=== PATIENT | male | born 1940 | race African-American/Black ===

== ENCOUNTER → 2018-12-03 10:58 | Outpatient (CLI) | payer OTHER, SELFPAY | PROVIDERS: PCP Internal Medicine; Visit Provider Physician Assistant | DX: R31.9 Hematuria, unspecified (principal) | CPT/HCPCS: 87086 ==

== ENCOUNTER 2018-12-20 09:29 | Day surgery (SDC) | payer OTHER, SELFPAY ==
--- NOTE | 2018-12-20 | PATH_ITS ---
[facility] Accession Number: [id number] . 01 Material submitted: . PART A: CECAL POLYPS PART B: TRANSVERSE COLON POLYPS . 02 Diagnosis: A. 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 No evidence of malignancy or high-grade dysplasia. . B. Transverse Colon, Polyps, Biopsies: Tubular adenomas. MRV/12/21/2018 . 02 Electronically signed: . Munira Arevlao MD, Pathologist NPI- [id number] . 01 Gross description: . Received two formalin-filled containers, both labeled with the patient's name: . A. In a container labeled cecal polyps, the specimen consists of multiple 0.1-0.6 cm portions of tissue, which are filtered, wrapped, and entirely submitted in cassettes A1 and A2. B. In a container labeled transverse colon polyps, the specimen consists of multiple less than 0.1 cm to 0.6 cm portions of tissue, which are filtered, wrapped, and entirely submitted in cassette B. ([id number]) /FRR . 02 Pathologist provided ICD-10: D12.0, D12.3 . 02 CPT . 818358, [id number] Performed at: 01 [facility] [address] [facility], [place], [place] [id number] MD Rafa Treviño MD Phone: [phone] Performed at: 02 [facility] [address] [place], [place] [id number] MD Munira Arevalo MD Phone: [phone]
--- NOTE | 2018-12-20 08:16 | PM.HP.1 ---
History of Present Illness Date Patient Seen: 12/20/18 Chief complaint: [id number] Narrative: Qwoikmr-fkfjl-jefs-old male with a history of changes in bowel habits who was seen in our office on 11/28/2017. He is having a colonoscopy due to a history of colon polyps and a family history colon cancer in his brother Patient History Social History household members: spouse, family and children Meds Home Medications Medication Instructions Recorded Confirmed Type aspirin 81 mg PO QDAY #0 03/08/12 12/03/18 History allopurinol 1 tab PO DAILY 12/20/18 12/20/18 History amlodipine 1 tab PO DAILY 12/20/18 12/20/18 History atorvastatin 1 tab PO DAILY 12/20/18 12/20/18 History cholecalciferol (vitamin D3) 4,000 unit PO DAILY 12/20/18 12/20/18 History [Vitamin D3] metformin 1 tab PO BID 12/20/18 12/20/18 History nmxtngvp-qdp-UD-lycopen-lutein 1 tab PO DAILY 12/20/18 12/20/18 History [Centrum Silver Men] Allergies Allergy/AdvReac Type Severity Reaction Status Date / Time No Known Drug Allergies Allergy Verified 12/20/18 10:10 Exam Narrative Exam Narrative: General: Patient is obese, not in apparent distress Cardiovascular: Regular rate and rhythm, no murmurs, rubs, or gallops; no evidence of edema; no palpable abdominal aortic aneurysm Gastrointestinal: Normoactive bowel sounds, soft, nontender, nondistended, no rebound tenderness, no hepatosplenomegaly, no evidence of hernia
--- NOTE | 2018-12-20 08:19 | P.HP_ITS ---
History of Present Illness Date Patient Seen: 12/20/18 Chief complaint: [id number] Narrative: Frkjnzb-nzvxo-dwcy-old male with a history of changes in bowel habits who was seen in our office on 11/28/2017. He is having a colonoscopy due to a history of colon polyps and a family history colon cancer in his brother Patient History Social History household members: spouse, family and children Meds Home Medications Medication Instructions Recorded Confirmed Type aspirin 81 mg PO QDAY #0 03/08/12 12/03/18 History allopurinol 1 tab PO DAILY 12/20/18 12/20/18 History amlodipine 1 tab PO DAILY 12/20/18 12/20/18 History atorvastatin 1 tab PO DAILY 12/20/18 12/20/18 History cholecalciferol (vitamin D3) 4,000 unit PO DAILY 12/20/18 12/20/18 History [Vitamin D3] metformin 1 tab PO BID 12/20/18 12/20/18 History dnxffbyq-rzn-CI-lycopen-lutein 1 tab PO DAILY 12/20/18 12/20/18 History [Centrum Silver Men] Allergies Allergy/AdvReac Type Severity Reaction Status Date / Time No Known Drug Allergies Allergy Verified 12/20/18 10:10 Exam Narrative Exam Narrative: General: Patient is obese, not in apparent distress Cardiovascular: Regular rate and rhythm, no murmurs, rubs, or gallops; no evidence of edema; no palpable abdominal aortic aneurysm Gastrointestinal: Normoactive bowel sounds, soft, nontender, nondistended, no rebound tenderness, no hepatosplenomegaly, no evidence of hernia
[2018-12-20 09:44] VITALS: BP 161/99; PULSE 64; RESP 16; TEMP 36.5; O2SAT 100; BMI 34.7
[2018-12-20] MEDS: SODIUM CHLORIDE 0.9% 1,000 ML 70 ML IV (10:03)
--- NOTE | 2018-12-20 10:34 | P.OP.ENDO_ITS ---
Operative Date/Time/Diagnoses Date of procedure: 12/20/18 Procedure Notes Procedure in detail: Surgeon: Fredis Andres MD Procedure: Colonoscopy with polypectomy Preoperative diagnosis: Colon polyp surveillance, incidental change in bowel habits Postoperative diagnosis: Colon polyps x6 status post polypectomy, 1 Endoclip placed at polypectomy site in the cecum, grade 2 internal hemorrhoids Medications: Conscious sedation using 2 mg IV of Midazolam and 100 mcg IV of Fentanyl Preanesthesia Assessment An H and P was performed/updated and the Px?s ASA class is 2. The procedure was discussed in detail with the patient. The potential risks and complications including infection, bleeding, missed lesions, perforation, need for surgery in case of perforation, prolonged hospital stay, and were explained. A brief question and answer period was allotted and once all questions were answered, informed consent was obtained. The patient was brought back to the procedure room and placed on standard monitoring. The patient?s vital signs were monitored continuously throughout the entire procedure. Prior to starting, a timeout was performed to confirm the patient?s identity, allergies, medications, and procedure. Procedure in detail The patient was placed in left lateral decubitus position and once adequate sedation was obtained a LUH was performed. The digital rectal examination did not reveal any palpable lesions. The tip of the colonoscope was placed in the an al canal and advanced without difficulty all the way to the cecum which was identified by the appendiceal orifice and the ileocecal valve. Careful examination of all cruz of the colon was performed with irrigation of any residual stool. In the cecum, there was note of a 5 mm sessile polyp which was removed in its entirety by means of cold snare. Resection and retrieval were complete with minimal bleeding In the cecum, there was note of a 15 mm pedunculated polyp which was removed in its entirety by means of a hot snare. Resection retrieval was complete with no bleeding. An Endoclip was placed at the polypectomy site for prophylactic bleed control. Endoclip is MRI conditional In the transverse colon, there was note of a 2 mm sessile polyp which was removed in its entirety by means of a cold Jumbo forceps. Resection and retrieval was complete with minimal bleeding In the transverse colon, there was note of a 10 mm semi pedunculated polyp which was removed in its entirety by means of a hot snare. Resection and retrieval was complete with no bleeding. In the transverse colon, there was note of 2 sessile polyps measuring 5-6 mm which were removed in its entirety by means of a cold snare. Resection and retrieval were complete with no bleeding Retroflexion was performed in the rectum which revealed grade 2 internal hemorrhoids The patient tolerated the procedure well and will be brought back to the recovery area to be discharged once criteria are met. The prep was judged to be good/excellent and adequate to identify polyps less than 5 mm. The withdrawal time was 14 min. The total physician intraservice time was 18 min. Complications There were no complications and estimated blood loss was minimal. Recommendations: Resume previous diet Continue outPx medications Follow up pathology results Repeat colonoscopy in 3 years Endoclip is MRI conditional so prior to any MRI study x-ray should be performed to document endoclip passage Office follow up with Dr. Dolan at next available appointment An emergency contact number was given to the patient for any complications related to the procedure
[2018-12-20 10:55] VITALS: BP 133/85; PULSE 63; RESP 14; TEMP 36.2; O2SAT 100
[2018-12-20 11:00] VITALS: BP 153/90; PULSE 69; RESP 16; O2SAT 100
[2018-12-20 11:04] VITALS: BP 155/84; PULSE 69; RESP 14; TEMP 36.2; O2SAT 100
--- NOTE | 2018-12-20 11:04 | PM.DS.1 ---
History of Present Illness Chief complaint: [id number] Narrative: Tkhnznl-nqtjg-efmn-old male with a history of changes in bowel habits who was seen in our office on 11/28/2017. He is having a colonoscopy due to a history of colon polyps and a family history colon cancer in his brother Discharge Providers Primary care physician: Chemo Garvin MD Discharge provider: Fredis Andres MD Discharge Date: 12/20/18 Exam Vital Signs (past 8 hours): - 12/20/18 09:44 12/20/18 10:55 12/20/18 11:00 Temperature 97.7 F 97.2 F L Pulse Rate 64 63 69 Respiratory Rate 16 14 16 Blood Pressure 161/99 H 133/85 153/90 H Pulse Oximetry 100 100 100 Oxygen Delivery Method Room Air Narrative Exam Narrative: General: Patient is obese, not in apparent distress Cardiovascular: Regular rate and rhythm, no murmurs, rubs, or gallops; no evidence of edema; no palpable abdominal aortic aneurysm Gastrointestinal: Normoactive bowel sounds, soft, nontender, nondistended, no rebound tenderness, no hepatosplenomegaly, no evidence of hernia Discharge Plan Discharge Plan Patient Disposition: Home Discharge comment: x6, grade 2 internal hemorrhoids Discharge Med Rec/Prescriptions Prescriptions: Continued aspirin 81 MG tablet,delayed release (DR/EC) 1 tab PO QDAY Qty: 0 RF: 0 metformin 500 mg tablet 1 tab PO BID RF: 0 atorvastatin 20 mg tablet 1 tab PO DAILY RF: 0 amlodipine 10 mg tablet 1 tab PO DAILY RF: 0 allopurinol 300 mg tablet 1 tab PO DAILY RF: 0 cholecalciferol (vitamin D3) [Vitamin D3] 2,000 unit Capsule 4,000 unit PO DAILY RF: 0 Centrum Silver Men 300-600-300 mcg Tablet 1 tab PO DAILY RF: 0 Follow up/Referrals: Chemo Garvin MD [Primary Care Provider] - Discharge Orders: Discharge (Order); Ordered 12/20/18 Ordered By: Fredis Andres Visit Report/Discharge Packet Stand Alone Forms: Colonoscopy Result: [facility], Surgery Discharge Discharge Data Primary Care Provider: Chemo Garvin V Attending Provider: Fredis Andres
[2018-12-20 11:25] VITALS: BP 162/83; PULSE 61; TEMP 36.1; O2SAT 100
--- NOTE | 2018-12-20 12:30 | SUR.PHASEII ---
IV d/c'd by ESSIE Glass.
== END 2018-12-20 11:32 | disposition home or self-care (01) ==
PROVIDERS: PCP Internal Medicine; Visit Provider Internal Medicine Gastroenterology
PROC: 0DJD8ZZ Inspection of Lower Intestinal Tract, Via Natural or Artificial Opening Endoscopic (ICD-10-PCS; CPT 45378; principal; 2018-12-20 11:00)
DX: Z86.010 Personal history of colon polyps (principal); K64.1 Second degree hemorrhoids; E11.9 Type 2 diabetes mellitus without complications; I10 Essential (primary) hypertension; Z79.84 Long term (current) use of oral hypoglycemic drugs; D12.0 Benign neoplasm of cecum; D12.3 Benign neoplasm of transverse colon
CPT/HCPCS: 45385; 45380

== ENCOUNTER 2019-05-23 09:30 | Emergency (ER) | payer OTHER, SELFPAY ==
[2019-05-23 09:30] VITALS: BP 152/69; PULSE 66; RESP 14; TEMP 36.5; O2SAT 99
--- NOTE | 2019-05-23 09:47 | ED.ABDPAIN ---
HPI - Abdominal Pain General Chief Complaint: Abdominal Pain Stated Complaint: Lower left stomach pain. Time Seen by Provider: 05/23/19 09:37 Source: patient and family () Mode of arrival: ambulatory Limitations: no limitations History of Present Illness HPI narrative: This is a 78-year-old male comes to the emergency department with complaint of abdominal pain. Patient states that it has been going on for about 2 weeks. It has been kind of slowly worsening. He seems to find that it is worse if he sits for long periods of time it gets better if he moves around. It sort of the left lower quadrant of the abdomen but he does feel it up into the flank. He also states that sometimes had a feels like it is in the hip. He also notes if he moves his leg around that can kind of make it worse as well. No fevers or chills that he is aware of. No nausea or vomiting. He was constipated but been using laxatives regularly and now having some soft bowel movements. He states his stools were dark but there was no black or blood noted. He has not appreciated any urinary issues. Patient takes medication for hypertension, dyslipidemia, gout as well as diabetes. He denies any prior surgeries. He denies any allergies to medications. He does not smoke, he used to drink but rarely if never drinks any more. No illicit. He is accompanied by his . He is Dr. Garvin patient. Related Data Home Medications Medication Instructions Recorded Confirmed aspirin 81 mg PO DAILY #0 03/08/12 05/23/19 Centrum Silver Men 1 tab PO DAILY 12/20/18 05/23/19 allopurinol 1 tab PO DAILY 12/20/18 05/23/19 amlodipine 10 mg PO DAILY 12/20/18 05/23/19 atorvastatin 20 mg PO DAILY 12/20/18 05/23/19 cholecalciferol (vitamin D3) 4,000 unit PO DAILY 12/20/18 05/23/19 [Vitamin D3] metformin 1,000 mg PO BID 12/20/18 05/23/19 glimepiride 0.5 mg PO DAILY 05/23/19 05/23/19 Previous Rx's Medication Instructions Recorded prednisone 20 mg PO DAILY #3 tab 05/23/19 Allergies Allergy/AdvReac Type Severity Reaction Status Date / Time No Known Drug Allergies Allergy Verified 07/10/19 09:39 Review of Systems Review of Systems ROS Unobtainable: All systems reviewed & are unremarkable except as noted in HPI and below Constitutional Denies chills, Denies fever(s), Denies lethargy and Denies weakness Gastrointestinal Gastrointestinal: Reports abdominal pain (Left lower quadrant), Denies melena, Denies hematochezia, Reports change in bowel habits, Denies constipation (Was constipated, resolved with laxative), Denies dyspepsia, Denies diarrhea, Denies nausea and Denies vomiting Genitourinary Denies hematuria, Denies dysuria, Reports flank pain (Flank), Denies testicular pain, Denies urinary frequency, Denies urinary incontinence and Denies urinary urgency Musculoskeletal Denies back pain, Reports arthralgias (left hip, slightly), Denies joint swelling, Denies limited range of motion, Denies muscle weakness, Denies numbness and Denies tingling Integumentary/Breasts Denies rash Neurologic Denies numbness, Denies tingling and Denies weakness [facility] Medical History (Updated 05/23/19 @ 12:47 by Luz Maria Hurd DO) Diabetes (Chronic) Dyslipidemia (Chronic) Gout (Chronic) Hypertension (Chronic) Social History household members: spouse, family and children Smoking Status: Never smoker Social History (Updated 05/23/19 @ 09:52 by Luz Maria Hurd DO) marital status: household members: spouse, family and children Smoking Status: Never smoker alcohol intake: former substance use type: does not use Exam Narrative Exam Narrative: GENERAL: Alert and oriented x three, well-nourished, well-appearing male in no acute distress. HEENT: Head normocephalic, atraumatic, EOMI, pupils reactive, face symmetric, moist mucous membranes NECK: Supple, full range of motion CARDIOVASCULAR: Regular rate and rhythm without murmurs, rubs or gallops. RESPIRATORY: Breath sounds equal bilaterally, no wheezes rales or rhonchi. ABDOMEN: Soft, mild left lower quadrant tenderness. Normoactive bowel sounds all 4 quadrants. No guarding or rebound, rigidity, no mass : No CVA tenderness BACK: No cervical, thoracic or lumbar vertebral point tenderness. Patient has normal range of motion. Patient's gait is normal. EXTREMITIES: Patient has mild tenderness in the left hip, negative pelvic rock. Normal range of motion, no clubbing or edema. Neurovascularly intact NEUROLOGICAL: Cranial nerves II through XII grossly intact. Moving all extremities SKIN: Warm, dry, no petechiae, no rashes or lesions. Initial Vital Signs Initial Vital Signs: Vital Signs Temperature 97.7 F 05/23/19 09:30 Pulse Rate 66 05/23/19 09:30 Respiratory Rate 14 05/23/19 09:30 Blood Pressure 152/69 H 05/23/19 09:30 Pulse Oximetry 99 05/23/19 09:30 Course Orders Ordered: ED Orders 05/23/19 09:47 CT abdomen pelvis w con Stat 05/23/19 10:44 Complete Blood Count AUTO DIFF Stat Comprehensive Metabolic Panel Stat Lipase Stat Discontinued Medications Sodium Chloride (Normal Saline 0.9%) 1,000 mls @ 1,000 mls/hr IV BOLUS ONE Stop: 05/23/19 10:46 Last Infusion: 05/23/19 13:13 Dose: 0 mls/hr Admin: 05/23/19 11:25 Dose: 1,000 mls/hr Vital Signs - 8 hr 05/23/19 11:00 05/23/19 12:00 05/23/19 12:30 Pulse Rate 55 L 60 61 Respiratory Rate 12 15 17 Blood Pressure Blood Pressure [Left Arm] 154/76 H 148/77 H 142/86 H Pulse Oximetry 98 100 99 05/23/19 13:13 Pulse Rate 67 Respiratory Rate 14 Blood Pressure 146/80 H Blood Pressure [Left Arm] Pulse Oximetry 99 MDM - Abdominal Pain Lab Data Attestation: I reviewed the patient's lab results. Result diagrams: 05/23/19 10:44 05/23/19 10:44 Lab Results 05/23/19 05/23/19 Range/Units 10:44 10:44 WBC 6.8 (4.5-11.0) X10^3/uL RBC 4.95 (4.5-5.9) X10^6/uL Hgb 15.0 (13.5-17.5) g/dL Hct 45.0 (41-53) % MCV 90.9 (80-100) fL MCH 30.2 (26-34) PG MCHC 33.2 (30-36) % RDW 13.7 (11.6-14.8) % Plt Count 181 (150-400) X10^3/uL Neut % (Auto) 59.8 (50-75) % Lymph % (Auto) 27.0 (25-40) % Stark % (Auto) 8.8 (3-14) % Eos % (Auto) 3.4 (2-4) % Baso % (Auto) 1.0 (0-2) % Neut # (Auto) 4100 (2513-6751) /uL Lymph # (Auto) 1800 (2541-6702) /uL Stark # (Auto) 600 (0-900) /uL Eos # (Auto) 200 (0-450) /uL Baso # (Auto) 100 (0-100) /uL Sodium 141 (137-145) mmol/L Potassium 4.2 (3.4-5.1) mmol/L Chloride 107 (98-107) mmol/L Carbon Dioxide 25 (22-32) mmol/L BUN 16 (9-20) mg/dL Creatinine 1.30 H (0.66-1.25) mg/dL Estimated GFR 53.4 L (>60) mL/min BUN/Creatinine Ratio 12.3 (6-22) Glucose 144 H (80-110) mg/dL Calcium 10.5 H (8.4-10.2) mg/dL Total Bilirubin 1.1 (0.2-1.3) mg/dL AST 52 (17-59) IU/L ALT 53 (21-72) IU/L Alkaline Phosphatase 62 (38-126) U/L Total Protein 7.6 (6.3-8.2) g/dL Albumin 4.4 (3.5-5.0) g/dL Globulin 3.2 (1.7-4.1) g/dL Albumin/Globulin Ratio 1.4 (1.0-2.8) Lipase 127 (23-300) U/L Point of care testing: Urine Dip Bedside Urine Glucose Negative Bedside Urine Bilirubin - Negative Bedside Urine Ketone - Negative Urine Specific [place] 1.015 Bedside Urine Occult Blood - Negative Bedside Urine pH 7.0 Bedside Urine Protein - Negative Bedside Urine Urobilinogen - Negative Bedside Urine Nitrite - Negative Bedside Urine Leukocytes - Negative Esterase Imaging Data CT scan - abdomen: Radiologist's impression: Hermila Rahmanvin 78 M [address] [address] [address] Scan Report Signed Patient: Karan Rahman#: [id number] : 1940Acct:[id number] Age/Sex: 78 / MDate of Service: 05/23/19 Loc: ED Accession Number: [id number] Procedure: CT abdomen pelvis w con Ordering Provider: Luz Maria Hurd D.O. PROCEDURE: CT ABDOMEN PELVIS W CON INDICATIONS: LLQ pain x 2 weeks, slowly worsening, L flank and hip too TECHNIQUE: After the administration of oral and intravenous contrast, 5 mm thick sections acquired from the diaphragms to the symphysis. 5 mm thick coronal and sagittal reformats were performed. For radiation dose reduction, the following was used: automated exposure control, adjustment of mA and/or kV according to patient size. COMPARISON: [facility], , L-SPINE WITHOUT CONTRAST, 11/13/2012, 11:04. [facility], US, RENAL COMPLETE, 07/31/2007, 11:17. FINDINGS: Image quality: Excellent. ABDOMEN: Lung bases: Lung bases are clear. Heart size is normal. Solid organs: Liver is normal in size and enhancement. Gallbladder is within normal limits. Biliary system is non-dilated. Pancreas enhances normally. Spleen is normal in size and enhancement. No adrenal nodules. There is a partially exophytic high density focus protruding anteriorly from the right inferior pole kidney, measuring 40 mm. Partially exophyticleft interpolar renal cyst measuring 20 mm is present. Kidneys are otherwise normal in size and enhancement, without hydronephrosis. Peritoneum and bowel: Stomach, small bowel, and colon loops are normal in caliber and wall thickness. No free fluid or air. Normal appendix. Moderate diffuse colonic stool. Nodes and vessels: No retroperitoneal or mesenteric adenopathy. Multiple mildly prominent mesenteric lymph nodes are present measuring less than 10 mm short axis. Aorta and inferior vena cava are normal in caliber. Moderate atherosclerotic plaque involving the abdominal aorta. Miscellaneous: No ventral hernias. PELVIS: Genitourinary: Bladder wall thickness is normal. Miscellaneous: No inguinal hernias or adenopathy. There is a right psoas sheath lipoma measuring 50 mm transverse. Small amount of left iliopsoas bursal fluid. Bones: No suspicious bony lesions. No vertebral body compression fractures. IMPRESSION: 1. Mildly prominent mesenteric lymph nodes, suggestive of mesenteric adenitis. 2. Mild left iliopsoas bursitis. 3. Normal appendix. 4. Indeterminant hypodensity focus involving the right kidney which was not seen on the 07.31.07 ultrasound examination. Repeat renal ultrasound is recommended to assess for a mass versus hyperdense cyst in this location. Dictated by: Jason Luong M.D. on 05/23/2019 at 11:46 Approved by: Jason Luong M.D. on 05/23/2019 at 11:53 [facility] Narrative Medical decision making narrative: Patient comes in with complaint of vague lower abdominal pain that has not been resolving. He complains mostly of left lower quadrant he does have some tenderness. He also complains of a little bit of hip discomfort. Patient has not had any falls, he has not had any traumas. He is only very mildly tender with palpation. Discussed with patient my suspicion for fracture is blow so deferred imaging of the hip. He states he has been ambulating without issue. We discussed the possibility multiple causes of his abdominal discomfort but plan to do CT of abdomen pelvis after lab work to evaluate for diverticulitis versus kidney stones versus other potential causes. Although we discussed it could be musculoskeletal in nature. Shingles less likely as there is no rash. CT shows possible mesenteric adenitis, mild left iliopsoas bursitis which could possibly be the cause of his pain. Normal appendix. Indeterminate focus involving the right kidney not seen on 2007 ultrasound examination and recommend repeat ultrasound for evaluation. Patient's lab work does not show any acute changes, creatinine is 1.3 which appears baseline compared to his most recent labs. Patient's urine is negative for any changes. Discharge Plan Departure Patient Disposition: Home Clinical Impression: Abdominal pain, Iliopsoas bursitis of left hip Discharge Date/Time: 05/23/19 13:14 Interventions: ED Discharge Assessment Last Done: 05/23/19 13:13 Instructions: DI for Abdominal Pain-Adult Activity Restrictions/Additional Instructions: Follow-up with your primary care physician next 2-3 days for recheck. Call for an appointment. Your CT today shows some prominent lymph nodes which could be a mesenteric adenitis, this is a self-resolving type diagnosis. There is also some mild bursitis of the iliopsoas which is likely the cause of the pain. Here CT also shows change of the right kidney which was not seen on ultrasound from 2007, repeat renal ultrasound is recommended. Talk with your physician about getting this repeated in the next several weeks. Continue home medications as prescribed. You may take Tylenol up to a 1000 mg every 8 hours as needed for pain if tolerated. Take steroids once daily until gone. Prescription was sent to [facility] in [place]. Return to the emergency department for fevers greater than 100.4 F, rapidly worsening pain, persistent vomiting, black or bloody stools, lightheadedness, passing out, new chest pain or shortness of breath. Prescriptions: New prednisone 20 mg tablet 20 mg PO DAILY Qty: 3 RF: 0 No Action aspirin 81 MG tablet,delayed release (DR/EC) 81 mg PO DAILY Qty: 0 RF: 0 metformin 500 mg tablet 1,000 mg PO BID RF: 0 atorvastatin 20 mg tablet 20 mg PO DAILY RF: 0 amlodipine 10 mg tablet 10 mg PO DAILY RF: 0 allopurinol 300 mg tablet 1 tab PO DAILY RF: 0 cholecalciferol (vitamin D3) [Vitamin D3] 2,000 unit Capsule 4,000 unit PO DAILY RF: 0 Centrum Silver Men 300-600-300 mcg Tablet 1 tab PO DAILY RF: 0 glimepiride 1 mg tablet 0.5 mg PO DAILY RF: 0 Referrals: Chemo Garvin MD [Primary Care Provider] -
--- NOTE | 2019-05-23 09:54 | ED_ITS ---
HPI - Abdominal Pain General Chief Complaint: Abdominal Pain Stated Complaint: Lower left stomach pain. Time Seen by Provider: 05/23/19 09:37 Source: patient and family () Mode of arrival: ambulatory Limitations: no limitations History of Present Illness HPI narrative: This is a 78-year-old male comes to the emergency department with complaint of abdominal pain. Patient states that it has been going on for about 2 weeks. It has been kind of slowly worsening. He seems to find that it is worse if he sits for long periods of time it gets better if he moves around. It sort of the left lower quadrant of the abdomen but he does feel it up into the flank. He also states that sometimes had a feels like it is in the hip. He also notes if he moves his leg around that can kind of make it worse as well. No fevers or chills that he is aware of. No nausea or vomiting. He was constipated but been using laxatives regularly and now having some soft bowel movements. He states his stools were dark but there was no black or blood noted. He has not appreciated any urinary issues. Patient takes medication for hypertension, dyslipidemia, gout as well as diabetes. He denies any prior surgeries. He denies any allergies to medications. He does not smoke, he used to drink but rarely if never drinks any more. No illicit. He is accompanied by his . He is Dr. Garvin patient. Related Data Home Medications Medication Instructions Recorded Confirmed aspirin 81 mg PO DAILY #0 03/08/12 05/23/19 Centrum Silver Men 1 tab PO DAILY 12/20/18 05/23/19 allopurinol 1 tab PO DAILY 12/20/18 05/23/19 amlodipine 10 mg PO DAILY 12/20/18 05/23/19 atorvastatin 20 mg PO DAILY 12/20/18 05/23/19 cholecalciferol (vitamin D3) 4,000 unit PO DAILY 12/20/18 05/23/19 [Vitamin D3] metformin 1,000 mg PO BID 12/20/18 05/23/19 glimepiride 0.5 mg PO DAILY 05/23/19 05/23/19 Previous Rx's Medication Instructions Recorded prednisone 20 mg PO DAILY #3 tab 05/23/19 Allergies Allergy/AdvReac Type Severity Reaction Status Date / Time No Known Drug Allergies Allergy Verified 07/10/19 09:39 Review of Systems Review of Systems ROS Unobtainable: All systems reviewed & are unremarkable except as noted in HPI and below Constitutional Denies chills, Denies fever(s), Denies lethargy and Denies weakness Gastrointestinal Gastrointestinal: Reports abdominal pain (Left lower quadrant), Denies melena, Denies hematochezia, Reports change in bowel habits, Denies constipation (Was constipated, resolved with laxative), Denies dyspepsia, Denies diarrhea, Denies nausea and Denies vomiting Genitourinary Denies hematuria, Denies dysuria, Reports flank pain (Flank), Denies testicular pain, Denies urinary frequency, Denies urinary incontinence and Denies urinary urgency Musculoskeletal Denies back pain, Reports arthralgias (left hip, slightly), Denies joint swelling, Denies limited range of motion, Denies muscle weakness, Denies numbness and Denies tingling Integumentary/Breasts Denies rash Neurologic Denies numbness, Denies tingling and Denies weakness [facility] Medical History (Updated 05/23/19 @ 12:47 by Luz Maria Hurd DO) Diabetes (Chronic) Dyslipidemia (Chronic) Gout (Chronic) Hypertension (Chronic) Social History household members: spouse, family and children Smoking Status: Never smoker Social History (Updated 05/23/19 @ 09:52 by Luz Maria Hurd DO) marital status: household members: spouse, family and children Smoking Status: Never smoker alcohol intake: former substance use type: does not use Exam Narrative Exam Narrative: GENERAL: Alert and oriented x three, well-nourished, well- appearing male in no acute distress. HEENT: Head normocephalic, atraumatic, EOMI, pupils reactive, face symmetric, moist mucous membranes NECK: Supple, full range of motion CARDIOVASCULAR: Regular rate and rhythm without murmurs, rubs or gallops. RESPIRATORY: Breath sounds equal bilaterally, no wheezes rales or rhonchi. ABDOMEN: Soft, mild left lower quadrant tenderness. Normoactive bowel sounds all 4 quadrants. No guarding or rebound, rigidity, no mass : No CVA tenderness BACK: No cervical, thoracic or lumbar vertebral point tenderness. Patient has normal range of motion. Patient's gait is normal. EXTREMITIES: Patient has mild tenderness in the left hip, negative pelvic rock. Normal range of motion, no clubbing or edema. Neurovascularly intact NEUROLOGICAL: Cranial nerves II through XII grossly intact. Moving all extremities SKIN: Warm, dry, no petechiae, no rashes or lesions. Initial Vital Signs Initial Vital Signs: Vital Signs Temperature 97.7 F 05/23/19 09:30 Pulse Rate 66 05/23/19 09:30 Respiratory Rate 14 05/23/19 09:30 Blood Pressure 152/69 H 05/23/19 09:30 Pulse Oximetry 99 05/23/19 09:30 Course Orders Ordered: ED Orders 05/23/19 09:47 CT abdomen pelvis w con Stat 05/23/19 10:44 Complete Blood Count AUTO DIFF Stat Comprehensive Metabolic Panel Stat Lipase Stat Discontinued Medications Sodium Chloride (Normal Saline 0.9%) 1,000 mls @ 1,000 mls/hr IV BOLUS ONE Stop: 05/23/19 10:46 Last Infusion: 05/23/19 13:13 Dose: 0 mls/hr Admin: 05/23/19 11:25 Dose: 1,000 mls/hr Vital Signs - 8 hr 05/23/19 11:00 05/23/19 12:00 05/23/19 12:30 Pulse Rate 55 L 60 61 Respiratory Rate 12 15 17 Blood Pressure Blood Pressure [Left Arm] 154/76 H 148/77 H 142/86 H Pulse Oximetry 98 100 99 05/23/19 13:13 Pulse Rate 67 Respiratory Rate 14 Blood Pressure 146/80 H Blood Pressure [Left Arm] Pulse Oximetry 99 MDM - Abdominal Pain Lab Data Attestation: I reviewed the patient's lab results. Result diagrams: 05/23/19 10:44 05/23/19 10:44 Lab Results 05/23/19 05/23/19 Range/Units 10:44 10:44 WBC 6.8 (4.5-11.0) X10^3/uL RBC 4.95 (4.5-5.9) X10^6/uL Hgb 15.0 (13.5-17.5) g/dL Hct 45.0 (41-53) % MCV 90.9 (80-100) fL MCH 30.2 (26-34) PG MCHC 33.2 (30-36) % RDW 13.7 (11.6-14.8) % Plt Count 181 (150-400) X10^3/uL Neut % (Auto) 59.8 (50-75) % Lymph % (Auto) 27.0 (25-40) % Dougherty % (Auto) 8.8 (3-14) % Eos % (Auto) 3.4 (2-4) % Baso % (Auto) 1.0 (0-2) % Neut # (Auto) 4100 (7721-0134) /uL Lymph # (Auto) 1800 (6699-6940) /uL Dougherty # (Auto) 600 (0-900) /uL Eos # (Auto) 200 (0-450) /uL Baso # (Auto) 100 (0-100) /uL Sodium 141 (137-145) mmol/L Potassium 4.2 (3.4-5.1) mmol/L Chloride 107 (98-107) mmol/L Carbon Dioxide 25 (22-32) mmol/L BUN 16 (9-20) mg/dL Creatinine 1.30 H (0.66-1.25) mg/dL Estimated GFR 53.4 L (>60) mL/min BUN/Creatinine Ratio 12.3 (6-22) Glucose 144 H (80-110) mg/dL Calcium 10.5 H (8.4-10.2) mg/dL Total Bilirubin 1.1 (0.2-1.3) mg/dL AST 52 (17-59) IU/L ALT 53 (21-72) IU/L Alkaline Phosphatase 62 (38-126) U/L Total Protein 7.6 (6.3-8.2) g/dL Albumin 4.4 (3.5-5.0) g/dL Globulin 3.2 (1.7-4.1) g/dL Albumin/Globulin Ratio 1.4 (1.0-2.8) Lipase 127 (23-300) U/L Point of care testing: Urine Dip Bedside Urine Glucose Negative Bedside Urine Bilirubin - Negative Bedside Urine Ketone - Negative Urine Specific Angelica 1.015 Bedside Urine Occult Blood - Negative Bedside Urine pH 7.0 Bedside Urine Protein - Negative Bedside Urine Urobilinogen - Negative Bedside Urine Nitrite - Negative Bedside Urine Leukocytes - Negative Esterase Imaging Data CT scan - abdomen: Radiologist's impression: Hermila Rahmanvin 78 M [address] [address] [address] Scan Report Signed Patient: Karan Rahman#: [id number] : 1940Acct:[id number] Age/Sex: 78 / MDate of Service: 05/23/19 Loc: ED Accession Number: [id number] Procedure: CT abdomen pelvis w con Ordering Provider: Luz Maria Hurd D.O. PROCEDURE: CT ABDOMEN PELVIS W CON INDICATIONS: LLQ pain x 2 weeks, slowly worsening, L flank and hip too TECHNIQUE: After the administration of oral and intravenous contrast, 5 mm thick sections acquired from the diaphragms to the symphysis. 5 mm thick coronal and sagittal reformats were performed. For radiation dose reduction, the following was used: automated exposure control, adjustment of mA and/or kV according to patient size. COMPARISON: [facility], , L-SPINE WITHOUT CONTRAST, 11/13/2012, 11:04. [facility], US, RENAL COMPLETE, 07/31/2007, 11:17. FINDINGS: Image quality: Excellent. ABDOMEN: Lung bases: Lung bases are clear. Heart size is normal. Solid organs: Liver is normal in size and enhancement. Gallbladder is within normal limits. Biliary system is non-dilated. Pancreas enhances normally. Spleen is normal in size and enhancement. No adrenal nodules. There is a partially exophytic high density focus protruding anteriorly from the right inferior pole kidney, measuring 40 mm. Partially exophyticleft interpolar renal cyst measuring 20 mm is present. Kidneys are otherwise normal in size and enhancement, without hydronephrosis. Peritoneum and bowel: Stomach, small bowel, and colon loops are normal in caliber and wall thickness. No free fluid or air. Normal appendix. Moderate diffuse colonic stool. Nodes and vessels: No retroperitoneal or mesenteric adenopathy. Multiple mildly prominent mesenteric lymph nodes are present measuring less than 10 mm short axis. Aorta and inferior vena cava are normal in caliber. Moderate atherosclerotic plaque involving the abdominal aorta. Miscellaneous: No ventral hernias. PELVIS: Genitourinary: Bladder wall thickness is normal. Miscellaneous: No inguinal hernias or adenopathy. There is a right psoas sheath lipoma measuring 50 mm transverse. Small amount of left iliopsoas bursal fluid. Bones: No suspicious bony lesions. No vertebral body compression fractures. IMPRESSION: 1. Mildly prominent mesenteric lymph nodes, suggestive of mesenteric adenitis. 2. Mild left iliopsoas bursitis. 3. Normal appendix. 4. Indeterminant hypodensity focus involving the right kidney which was not seen on the 07.31.07 ultrasound examination. Repeat renal ultrasound is recommended to assess for a mass versus hyperdense cyst in this location. Dictated by: Jason Luong M.D. on 05/23/2019 at 11:46 Approved by: Jason Luong M.D. on 05/23/2019 at 11:[address] [facility] Narrative Medical decision making narrative: Patient comes in with complaint of vague lower abdominal pain that has not been resolving. He complains mostly of left lower quadrant he does have some tenderness. He also complains of a little bit of hip discomfort. Patient has not had any falls, he has not had any traumas. He is only very mildly tender with palpation. Discussed with patient my suspicion for fracture is blow so deferred imaging of the hip. He states he has been ambulating without issue. We discussed the possibility multiple causes of his abdominal discomfort but plan to do CT of abdomen pelvis after lab work to evaluate for diverticulitis versus kidney stones versus other potential causes. Although we discussed it could be musculoskeletal in nature. Shingles less likely as there is no rash. CT shows possible mesenteric adenitis, mild left iliopsoas bursitis which could possibly be the cause of his pain. Normal appendix. Indeterminate focus involving the right kidney not seen on 2007 ultrasound examination and recommend repeat ultrasound for evaluation. Patient's lab work does not show any acute changes, creatinine is 1.3 which appears baseline compared to his most recent labs. Patient's urine is negative for any changes. Discharge Plan Departure Patient Disposition: Home Clinical Impression: Abdominal pain, Iliopsoas bursitis of left hip Discharge Date/Time: 05/23/19 13:14 Interventions: ED Discharge Assessment Last Done: 05/23/19 13:13 Instructions: DI for Abdominal Pain-Adult Activity Restrictions/Additional Instructions: Follow-up with your primary care physician next 2-3 days for recheck. Call for an appointment. Your CT today shows some prominent lymph nodes which could be a mesenteric adenitis, this is a self-resolving type diagnosis. There is also some mild bursitis of the iliopsoas which is likely the cause of the pain. Here CT also shows change of the right kidney which was not seen on ultrasound from 2007, repeat renal ultrasound is recommended. Talk with your physician about getting this repeated in the next several weeks. Continue home medications as prescribed. You may take Tylenol up to a 1000 mg every 8 hours as needed for pain if tolerated. Take steroids once daily until gone. Prescription was sent to [facility] in [place]. Return to the emergency department for fevers greater than 100.4 F, rapidly worsening pain, persistent vomiting, black or bloody stools, lightheadedness, passing out, new chest pain or shortness of breath. Prescriptions: New prednisone 20 mg tablet 20 mg PO DAILY Qty: 3 RF: 0 No Action aspirin 81 MG tablet,delayed release (DR/EC) 81 mg PO DAILY Qty: 0 RF: 0 metformin 500 mg tablet 1,000 mg PO BID RF: 0 atorvastatin 20 mg tablet 20 mg PO DAILY RF: 0 amlodipine 10 mg tablet 10 mg PO DAILY RF: 0 allopurinol 300 mg tablet 1 tab PO DAILY RF: 0 cholecalciferol (vitamin D3) [Vitamin D3] 2,000 unit Capsule 4,000 unit PO DAILY RF: 0 Centrum Silver Men 300-600-300 mcg Tablet 1 tab PO DAILY RF: 0 glimepiride 1 mg tablet 0.5 mg PO DAILY RF: 0 Referrals: Chemo Garvin MD [Primary Care Provider] -
[2019-05-23 10:00] VITALS: BP 144/72; PULSE 64; RESP 19; O2SAT 98
[2019-05-23 10:53] LABS: Add Manual Diff / Slide Review NO; Basophils Absolute Auto 100 /uL (0-100); Eosinophils Absolute Auto 200 /uL (0-450); Eosinophils Percent Auto 3.4 % (2-4); Lymphocytes Absolute Auto 1800 /uL (1100-4500); Mean Corpuscular HGB Conc 33.2 % (30-36); Mean Corpuscular Hemoglobin 30.2 PG (26-34); Mean Corpuscular Volume 90.9 fL (80-100); Monocytes Absolute Auto 600 /uL (0-900); Monocytes Percent Auto 8.8 % (3-14); Neutrophils Absolute Auto 4100 /uL (1500-7000); Neutrophils Percent Auto 59.8 % (50-75); Platelet Count 181 X10^3/uL (150-400); Red Blood Cell Count 4.95 X10^6/uL (4.5-5.9); Red Cell Distribution Width 13.7 % (11.6-14.8); White Blood Cell Count 6.8 X10^3/uL (4.5-11.0)
[2019-05-23 11:00] VITALS: BP 154/76; PULSE 55; RESP 12; O2SAT 98
[2019-05-23 11:15] LABS: Alanine Aminotransferase 53 IU/L (21-72); Albumin 4.4 g/dL (3.5-5.0); Albumin Globulin Ratio 1.4 (1.0-2.8); Alkaline Phosphatase 62 U/L (38-126); Aspartate Aminotransferase 52 IU/L (17-59); BUN Creatinine Ratio 12.3 (6-22); Bilirubin Total 1.1 mg/dL (0.2-1.3); Blood Urea Nitrogen 16 mg/dL (9-20); Calcium 10.5 mg/dL (8.4-10.2); Carbon Dioxide 25 mmol/L (22-32); Chloride 107 mmol/L (98-107); Estimated Glomerular Filt Rate 53.4 mL/min (>60); Globulin 3.2 g/dL (1.7-4.1); Glucose 144 mg/dL (80-110); HEMOLYSIS 36 (0-50); Lipase 127 U/L (23-300); Potassium 4.2 mmol/L (3.4-5.1); Sodium 141 mmol/L (137-145); Total Protein 7.6 g/dL (6.3-8.2)
[2019-05-23] MEDS: SODIUM CHLORIDE 0.9% 1,000 ML 1000 ML IV (11:25)
[2019-05-23 12:00] VITALS: BP 148/77; PULSE 60; RESP 15; O2SAT 100
[2019-05-23 12:30] VITALS: BP 142/86; PULSE 61; RESP 17; O2SAT 99
[2019-05-23 13:13] VITALS: BP 146/80; PULSE 67; RESP 14; O2SAT 99
== END 2019-05-23 13:14 | disposition home or self-care (01) ==
PROVIDERS: Emergency Provider Emergency Medicine; PCP Internal Medicine
DX: R10.9 Unspecified abdominal pain (principal); M70.72 Other bursitis of hip, left hip
CPT/HCPCS: 36591; 74177; 80053; 81003; 83690; 85025; 96360; 96361; 99283; 99284; Q9967

== ENCOUNTER → 2019-06-01 12:14 | Outpatient (CLI) | payer OTHER, SELFPAY ==
--- NOTE | 2019-06-01 | DI.US.S_ITS ---
PROCEDURE: US RENAL COMPLETE INDICATIONS: MASS ON CT TECHNIQUE: Real-time scanning was performed of the kidneys and bladder, with image documentation. COMPARISON: [facility], US, RENAL COMPLETE, 07/31/2007, 11:17. [facility], CT, CT ABDOMEN PELVIS W CON, 05/23/2019, 11:29. FINDINGS: Kidneys: Kidneys are normal in size. Right kidney measures 11.7 cm long; left kidney measures 10.5 cm long. Right renal cortical thickness is 2.2 cm; left renal cortical thickness is 1.8 cm. Renal cortical echotexture is normal. No hydronephrosis or nephrolithiasis. There are bilateral renal cysts. A 3.3 x 2.1 x 2.4 cm simple cyst is seen in the inferior right kidney. A 1.7 x 1.7 x 1.7 cm simple there cyst is noted in the superior pole of the left kidney. There is a 2.8 cm slightly complex cyst in the inferior pole of the left kidney. No suspicious solid mass lesions. Bladder: Pre-void bladder volume is 641 mL. Post-void residual is 164 mL. Pre-void images demonstrate no intraluminal masses or stones. On pre-void images, either ureteral jets are noted with color Doppler interrogation. (Of note, ureteral jets may not be detectable in up to 25% of cases due to insufficient differences in specific gravity between ureteral and bladder urine). Miscellaneous: No free pelvic fluid. Note is made of severe hepatic fatty infiltration. IMPRESSION: 1. The hypodense mass in the inferior pole the right kidney seen on the comparison CT correlates with a simple cyst seen on ultrasound. 2. There are 2 cysts in left kidney. A smaller 8 mm cyst is slightly complex. A larger 1.7 cm cystic appears simple. 3. 164 mL post void residual in the urinary bladder. 4. Hepatic steatosis. Dictated by: Aiden Moreira M.D. on 06/01/2019 at 17:22 Approved by: Aiden Moreira M.D. on 06/01/2019 at 17:29
== END ==
PROVIDERS: PCP Internal Medicine; Visit Provider Internal Medicine
DX: R93.421 Abnormal radiologic findings on diagnostic imaging of right kidney (principal); N28.89 Other specified disorders of kidney and ureter; R33.9 Retention of urine, unspecified
CPT/HCPCS: 76770

== ENCOUNTER → 2019-10-10 15:55 | Outpatient (ROUT) | payer OTHER, SELFPAY ==
[2019-10-10 16:32] LABS: Aspartate Aminotransferase 47 IU/L (17-59); BUN Creatinine Ratio 10.8 (6-22); Blood Urea Nitrogen 14 mg/dL (9-20); Calcium 11.1 mg/dL (8.4-10.2); Carbon Dioxide 27 mmol/L (22-32); Chloride 106 mmol/L (98-107); Cholesterol 150 mg/dL (140-199); Estimated Glomerular Filt Rate 53.4 mL/min (>60); Glucose 165 mg/dL (80-110); HDL Cholesterol 44 mg/dL (40-60); HEMOLYSIS < 15 (0-50); LDL Cholesterol Calculated 87 mg/dL (<100); Potassium 4.1 mmol/L (3.4-5.1); Sodium 142 mmol/L (137-145); Triglycerides 95 mg/dL (35-150)
== END ==
PROVIDERS: PCP Internal Medicine; Visit Provider Internal Medicine
DX: I10 Essential (primary) hypertension (principal); E78.2 Mixed hyperlipidemia
CPT/HCPCS: 80048; 80061; 84450

== ENCOUNTER 2020-01-24 14:35 | Emergency (ER) | payer OTHER, SELFPAY ==
[2020-01-24 14:40] VITALS: BP 193/86; PULSE 72; RESP 13; TEMP 36.9; O2SAT 99; BMI 32.5
--- NOTE | 2020-01-24 14:45 | DI.RAD.S_ITS ---
PROCEDURE: XR CHEST 1V INDICATIONS: chest pain TECHNIQUE: One view of the chest was acquired. COMPARISON: None. FINDINGS: Surgical changes and devices: None. Lungs and pleura: Lungs are clear. No pleural effusions or pneumothorax. Mediastinum: Mediastinal contours appear normal. Heart size is normal. Bones and chest wall: No suspicious bony lesions. Overlying soft tissues appear unremarkable. IMPRESSION: No acute cardiopulmonary pathology. Dictated by: Mono Nelson M.D. on 01/24/2020 at 15:38 Approved by: Mono Nelson M.D. on 01/24/2020 at 15:43
--- NOTE | 2020-01-24 14:53 | PC.NURSE ---
pt c/o chest pain started today while sitting in his chair. pt also c/o tenderness to his xyphoid process.
[2020-01-24 14:59] LABS: Add Manual Diff / Slide Review NO; Basophils Absolute Auto 100 /uL (0-100); Basophils Percent Auto 1.6 % (0-2); Eosinophils Absolute Auto 200 /uL (0-450); Eosinophils Percent Auto 2.8 % (2-4); Hematocrit 43.4 % (41-53); Hemoglobin 14.8 g/dL (13.5-17.5); Lymphocytes Absolute Auto 2100 /uL (1100-4500); Lymphocytes Percent Auto 26.9 % (25-40); Mean Corpuscular HGB Conc 34.2 % (30-36); Mean Corpuscular Volume 90.6 fL (80-100); Monocytes Absolute Auto 600 /uL (0-900); Monocytes Percent Auto 7.4 % (3-14); Neutrophils Absolute Auto 4800 /uL (1500-7000); Neutrophils Percent Auto 61.3 % (50-75); Platelet Count 195 X10^3/uL (150-400); Red Cell Distribution Width 13.7 % (11.6-14.8); White Blood Cell Count 7.8 X10^3/uL (4.5-11.0)
[2020-01-24 15:00] VITALS: BP 169/75; PULSE 67; RESP 12
[2020-01-24 15:00] LABS: INR 1.1 (0.9-1.3); Prothrombin Time 12.5 SECONDS (10.1-12.7)
--- NOTE | 2020-01-24 15:00 | ED_ITS ---
HPI - Chest Pain General Chief Complaint: Chest Pain Stated Complaint: chest pain Time Seen by Provider: 01/24/20 14:49 Source: patient Mode of arrival: Ambulatory Limitations: no limitations History of Present Illness HPI narrative: CC: Lower sternal epigastric pressure HPI: The patient is a 79 year old male who presents to the emergency department with the development of epigastric and lower chest pressure after he ate breakfast. He has had this discomfort since breakfast. He describes it as a pressure. He had cream of wheat and eggs for breakfast. His of 54 year states that he has complained of this discomfort in the past. He denies that it radiates to his back or into the shoulders neck jaw or arm. He denies any radiation to his back. He has not had his gallbladder removed nor history of pancreatitis. He has no history of cirrhosis of the liver or alcoholism. He is a diabetic with hypertension but denies a history of congestive heart failure myocardial infarction COPD. He does not smoke cigarettes drink alcohol use any drugs. He states that his discomfort is 3 to 4/10 in intensity. It is intermittent. He has had some indigestion and heartburn but none today. He denies any fever chills sweats headache nasal drainage sinus congestion sore throat shortness of breath. He states that he has a low-grade chronic cough. He has had no palpitations or dizziness. He denies any backache no no nausea or vomiting diarrhea. He did state that his stool sometimes are dark and almost look bloody in nature he stated he denies any urinary symptoms. Related Data Home Medications Medication Instructions Recorded Confirmed aspirin 81 mg PO QPM #0 03/08/12 01/24/20 Centrum Silver Men 1 tab PO DAILY 12/20/18 01/24/20 allopurinol 300 mg PO QPM 12/20/18 01/24/20 amlodipine 10 mg PO DAILY 12/20/18 01/24/20 atorvastatin 20 mg PO DAILY 12/20/18 01/24/20 cholecalciferol (vitamin D3) 4,000 unit PO DAILY 12/20/18 01/24/20 [Vitamin D3] metformin 1,000 mg PO BID 12/20/18 01/24/20 glimepiride 0.5 mg PO DAILY 05/23/19 01/24/20 donepezil 5 mg PO DAILY 01/24/20 01/24/20 mupirocin 1 applic TOPICAL DIRECTED 01/24/20 01/24/20 Previous Rx's Medication Instructions Recorded naproxen [Naprosyn] 500 mg PO BID PRN #20 tab 01/24/20 pantoprazole [Protonix] 40 mg PO DAILY #10 tab 01/24/20 Allergies Allergy/AdvReac Type Severity Reaction Status Date / Time No Known Drug Allergies Allergy Verified 01/24/20 14:46 Review of Systems Review of Systems Narrative: All review of systems were negative except for those mentioned in the history of present illness. Patient History Medical History Diabetes (Chronic) Dyslipidemia (Chronic) Gout (Chronic) Hypertension (Chronic) Social History marital status: household members: spouse, family and children Smoking Status: Never smoker alcohol intake: former substance use type: does not use Smoking Status: Never smoker alcohol intake frequency: 0-2 drinks per day Substance Use Type: does not use Exam Narrative Exam Narrative: PHYSICAL EXAM: CONSTITUTIONAL: Awake, Alert, Oriented, Coherent, Cooperative in NAD. Does not appear toxic or ill. He did appear pale. HEAD: AT/NC EENT: PERRL, FROM of eyes, no discharge, . No epistaxis or nasal drainage Oral mucosa is moist and pink, posterior pharynx is without erythema or exudate. NECK: Supple, no obvious JVD, Trachea is midline without stridor, no palpable LN .. SPINE: No gross deformity, no palpable tenderness of the cervical, thoracic, lumbar or sacral spine. No CVA tenderness. THORAX: No deformity, retractions, . The patient's is a few sternum is tender to palpation. There is no other chest wall deformity. There is no chest wall tenderness otherwise. LUNGS: Clear with symmetrical breath sounds without respiratory distress HEART: Normal heart tones, regular rhythm and rate without murmur. ABDOMEN: Soft, tender in the epigastrium with mild guarding no rebound no rigi dity no palpable organomegaly. EXTREMITIES: No edema, cyanosis, deformity or tenderness. SKIN: No rash, bruising, petechiae or purpura. NEURO: Awake, alert, oriented, conversive, cranial nerves II-XII are symmetrical and normal, moves all 4 extremities and is ambulatory Initial Vital Signs Initial Vital Signs: Vital Signs Temperature 98.4 F 01/24/20 14:40 Pulse Rate 72 01/24/20 14:40 Respiratory Rate 13 01/24/20 14:40 Blood Pressure 193/86 H 01/24/20 14:40 Pulse Oximetry 99 01/24/20 14:40 Course Course Course Narrative: 1658 the patient's rectal exam revealed no active bleeding no skin tags or hemorrhoids. The patient has fair to good sphincter tone with brown stool that tested negative for occult blood. The patient's ultrasound of the gallbladder is negative for any gallstones. The patient's chest x-ray is negative for any acute cardiopulmonary pathology. The patient's troponin is normal. The patient's history did not sound as though it is cardiac in nature. The patient will be referred to his primary care physician. He will be discharged home and placed on pantoprazole 40 mg per day for the next 10 days and antacids. Orders Ordered: Discontinued Medications Al Hydrox/Mg Hydrox/Simethicone 30 ml/ Lidocaine HCl 15 ml 0 ml PO NOW ONE Stop: 01/24/20 15:14 Last Admin: 01/24/20 15:44 Dose: 30 ml Documented by: THALIA Morphine Sulfate (Morphine Sulfate) 4 mg IV NOW ONE Stop: 01/24/20 15:14 Last Admin: 01/24/20 16:09 Dose: Not Given Documented by: MARÍA Morphine Sulfate (Morphine) 4 mg IV NOW ONE Stop: 01/24/20 15:46 Last Admin: 01/24/20 15:44 Dose: 4 mg Documented by: THALIA Ondansetron HCl (Zofran) 4 mg IV NOW ONE Stop: 01/24/20 15:14 Last Admin: 01/24/20 15:44 Dose: 4 mg Documented by: THALIA Vital Signs Vital signs: Vital Signs - 8 hr 01/24/20 14:40 Temperature 98.4 F Pulse Rate 72 Respiratory Rate 13 Blood Pressure 193/86 H Pulse Oximetry 99 MDM - Chest Pain Lab Data Result diagrams: 01/24/20 14:40 01/24/20 14:40 Labs: Lab Results 01/24/20 01/24/20 01/24/20 Range/Units 14:40 14:40 14:40 WBC 7.8 (4.5-11.0) X10^3/uL RBC 4.80 (4.5-5.9) X10^6/uL Hgb 14.8 (13.5-17.5) g/dL Hct 43.4 (41-53) % MCV 90.6 (80-100) fL MCH 31.0 (26-34) PG MCHC 34.2 (30-36) % RDW 13.7 (11.6-14.8) % Plt Count 195 (150-400) X10^3/uL Neut % (Auto) 61.3 (50-75) % Lymph % (Auto) 26.9 (25-40) % [place] % (Auto) 7.4 (3-14) % Eos % (Auto) 2.8 (2-4) % Baso % (Auto) 1.6 (0-2) % Neut # (Auto) 4800 (0722-0839) /uL Lymph # (Auto) 2100 (8357-2044) /uL [place] # (Auto) 600 (0-900) /uL Eos # (Auto) 200 (0-450) /uL Baso # (Auto) 100 (0-100) /uL PT 12.5 (10.1-12.7) SECONDS INR 1.1 (0.9-1.3) APTT 30 (26.4-36.2) SECONDS Sodium 141 (137-145) mmol/L Potassium 4.2 (3.4-5.1) mmol/L Chloride 107 (98-107) mmol/L Carbon Dioxide 26 (22-32) mmol/L BUN 18 (9-20) mg/dL Creatinine 1.26 H (0.66-1.25) mg/dL Estimated GFR 55.2 L (>60) mL/min BUN/Creatinine Ratio 14.3 (6-22) Glucose 219 H (80-110) mg/dL Calcium 11.2 H (8.4-10.2) mg/dL Total Bilirubin 0.6 (0.2-1.3) mg/dL AST 37 (17-59) IU/L ALT 36 (<50) IU/L Alkaline Phosphatase 70 (38-126) U/L Total Creatine Kinase 83 (55-170) U/L CK-MB (CK-2) TNP CK-MB (CK-2) Rel Index TNP Troponin I < 0.012 (0.01-0.034) ng/mL Total Protein 7.7 (6.3-8.2) g/dL Albumin 4.5 (3.5-5.0) g/dL Globulin 3.2 (1.7-4.1) g/dL Albumin/Globulin Ratio 1.4 (1.0-2.8) Lipase 114 (23-300) U/L ECG Data Attestation: I personally reviewed and interpreted this ECG as follows: Interpretation: The patient's EKG drawn on January 23 at 14:5 12:27 a.m. revealed a normal sinus rhythm with suggestion of left ventricular hypertrophy by voltage criteria in the lateral precordial leads. There is a Q-wave present in V1 with inverted T-waves in V1 no other acute inverted T-waves or ST segment changes are appreciated. His axis is normal intervals are otherwise normal. The rhythm is normal sinus with a ventricular rate of 64. Discharge Plan Departure Patient Disposition: Home Clinical Impression: Atypical chest pain, Epigastric pressure, Chest wall pain Gastritis Qualifiers: Gastritis type: unspecified gastritis Chronicity: acute Gastritis bleeding: without bleeding Qualified Code(s): K29.00 - Acute gastritis without bleeding Discharge Date/Time: 01/24/20 17:20 Instructions: DI for Gastroesophageal Reflux Disease (GERD), DI for Gastritis, DI for Costochondritis Activity Restrictions/Additional Instructions: 1. As I showed you, when you press on your xiphisternum and it is tender and mimics your chest discomfort, this is not cardiac pain but musculoskeletal ches t wall pain, costochondritis. Take the Naprosyn for this type of discomfort. 2. Take the Protonix/pantoprazole 40 mg per day for the next 10 days to help decrease the secretion of an acid which can cause pressure and discomfort in your stomach and may be causing you to have the dark stools. 3. If you developed pressure in the center of your chest that lasts longer than 15 minutes and radiates to your neck jaw shoulders arm or back you need to return to the emergency department to be evaluated. If this is associated with dizziness palpitations fainting or passing-out you definitely need to return to the emergency department. 4 for discomfort and indigestion on relieved by the medications take a liquid antacid like Gaviscon Mylanta or Maalox as we discussed. 5. Follow-up with your primary care physician for further evaluation and a possible stress test in the future or even a possible referral to a fire equipment inspector helper. Prescriptions: New pantoprazole [Protonix] 40 mg tablet,delayed release (DR/EC) 40 mg PO DAILY Qty: 10 RF: 0 naproxen [Naprosyn] 500 mg tablet 500 mg PO BID PRN (Reason: pain) Qty: 20 RF: 0 No Action aspirin 81 MG tablet,delayed release (DR/EC) 81 mg PO QPM Qty: 0 RF: 0 metformin 500 mg tablet 1,000 mg PO BID RF: 0 atorvastatin 20 mg tablet 20 mg PO DAILY RF: 0 amlodipine 10 mg tablet 10 mg PO DAILY RF: 0 allopurinol 300 mg tablet 300 mg PO QPM RF: 0 cholecalciferol (vitamin D3) [Vitamin D3] 2,000 unit Capsule 4,000 unit PO DAILY RF: 0 Centrum Silver Men 300-600-300 mcg Tablet 1 tab PO DAILY RF: 0 donepezil 5 mg tablet 5 mg PO DAILY RF: 0 mupirocin 2 % ointment 1 applic TOPICAL DIRECTED RF: 0 glimepiride 1 mg tablet 0.5 mg PO DAILY RF: 0 Referrals: Chemo Garvin MD [Primary Care Provider] -
[2020-01-24 15:03] LABS: PTT Partial Thromboplastin Tim 30 SECONDS (26.4-36.2)
[2020-01-24 15:04] LABS: Alanine Aminotransferase 36 IU/L (<50); Albumin 4.5 g/dL (3.5-5.0); Albumin Globulin Ratio 1.4 (1.0-2.8); Alkaline Phosphatase 70 U/L (38-126); Aspartate Aminotransferase 37 IU/L (17-59); BUN Creatinine Ratio 14.3 (6-22); Bilirubin Total 0.6 mg/dL (0.2-1.3); Blood Urea Nitrogen 18 mg/dL (9-20); Calcium 11.2 mg/dL (8.4-10.2); Carbon Dioxide 26 mmol/L (22-32); Chloride 107 mmol/L (98-107); Creatine Kinase 83 U/L (55-170); Estimated Glomerular Filt Rate 55.2 mL/min (>60); Globulin 3.2 g/dL (1.7-4.1); Glucose 219 mg/dL (80-110); HEMOLYSIS 28 (0-50); Lipase 114 U/L (23-300); Potassium 4.2 mmol/L (3.4-5.1); Sodium 141 mmol/L (137-145); Total Protein 7.7 g/dL (6.3-8.2)
--- NOTE | 2020-01-24 15:15 | DI.US.S_ITS ---
PROCEDURE: US ABDOMEN LIMITED INDICATIONS: EPIG PRESSURE/PAIN AFTER EATING BREAKFAST TECHNIQUE: Real-time scanning was performed of the abdominal and retroperitoneal organs, with image documentation. COMPARISON: [facility], US, US RENAL COMPLETE, 06/01/2019, 12:54. [facility], CT, CT ABDOMEN PELVIS W CON, 05/23/2019, 11:29. FINDINGS: Liver: Liver is normal in size and homogeneous in echotexture. Gallbladder: Nondilated. No stones or sludge. Normal gallbladder wall thickness. No pericholecystic fluid. Negative sonographic Burt's sign. Biliary ducts: Not well-seen. Intrahepatic bile ducts are non-dilated. Extrahepatic bile duct caliber measures 4 mm. Pancreas: Not well-seen. Kidneys: Right kidney measures 10.3 cm long. No hydronephrosis or nephrolithiasis. No solid masses. Simple appearing cyst at the inferior pole the right kidney measuring 4 x 3.1 x 2.9 cm. IMPRESSION: No abnormality identified to explain the patient's epigastric pain. No gallstones. Dictated by: Rajendra Bella M.D. on 01/24/2020 at 16:33 Approved by: Rajendra Bella M.D. on 01/24/2020 at 16:37
[2020-01-24 15:16] LABS: Troponin I < 0.012 ng/mL (0.01-0.034)
[2020-01-24 15:30] VITALS: BP 149/66; PULSE 60; RESP 18; O2SAT 99
[2020-01-24] MEDS: MORPHINE 4 MG/ML INJ IV (15:44)
[2020-01-24] MEDS: ONDANSETRON 4 MG/2 ML INJ IV (15:44)
[2020-01-24] MEDS: MAG HYDROX/ALUMINUM/SIMETH SUS 30 ML, LIDOCAINE VISCOUS 2% 15 ML PO (15:44)
[2020-01-24 16:00] VITALS: BP 171/74; PULSE 60; RESP 12; O2SAT 99
[2020-01-24 16:30] VITALS: BP 156/69; PULSE 58; RESP 12; O2SAT 98
== END 2020-01-24 17:20 | disposition home or self-care (01) ==
PROVIDERS: Emergency Provider Emergency Medicine; PCP Internal Medicine
DX: R07.89 Other chest pain (principal); R10.13 Epigastric pain; K29.00 Acute gastritis without bleeding; E11.9 Type 2 diabetes mellitus without complications; I10 Essential (primary) hypertension
CPT/HCPCS: 36415; 71045; 76705; 80053; 82550; 83690; 84484; 85025; 85610; 85730; 93005; 96374; 96375; 99284; J2270; J2405

== ENCOUNTER → 2020-06-26 16:23 | Outpatient (CLI) | payer MEDICARE, SELFPAY ==
--- NOTE | 2020-06-26 | DI.RAD.S_ITS ---
PROCEDURE: XR CHEST 2V INDICATIONS: Hemoptysis TECHNIQUE: 2 views of the chest were acquired. COMPARISON: [facility], CR, XR CHEST 1V, 01/24/2020, 14:58. FINDINGS: Surgical changes and devices: None. Lungs and pleura: Lungs are clear. No pleural effusions or pneumothorax. Mediastinum: Aortic atherosclerosis. Mediastinal contours are normal. Heart size is normal. Bones and chest wall: No suspicious bony abnormalities. Soft tissues appear unremarkable. IMPRESSION: No acute cardiopulmonary process demonstrated radiographically. Dictated by: Ramez Menard M.D. on 06/26/2020 at 16:49 Approved by: Ramez Menard M.D. on 06/26/2020 at 16:50
[2020-06-26 20:36] LABS: Add Manual Diff / Slide Review NO; Basophils Absolute Auto 100 /uL (0-100); Eosinophils Absolute Auto 300 /uL (0-450); Eosinophils Percent Auto 3.4 % (2-4); Hematocrit 43.2 % (41-53); Hemoglobin 14.4 g/dL (13.5-17.5); Lymphocytes Absolute Auto 2300 /uL (1100-4500); Lymphocytes Percent Auto 28.9 % (25-40); Mean Corpuscular HGB Conc 33.4 % (30-36); Mean Corpuscular Hemoglobin 30.3 PG (26-34); Mean Corpuscular Volume 90.8 fL (80-100); Monocytes Absolute Auto 600 /uL (0-900); Monocytes Percent Auto 7.9 % (3-14); Neutrophils Absolute Auto 4700 /uL (1500-7000); Neutrophils Percent Auto 58.8 % (50-75); Platelet Count 198 X10^3/uL (150-400); Red Blood Cell Count 4.76 X10^6/uL (4.5-5.9); Red Cell Distribution Width 13.7 % (11.6-14.8)
[2020-06-26 20:41] LABS: Alanine Aminotransferase 29 IU/L (<50); Albumin 4.3 g/dL (3.5-5.0); Albumin Globulin Ratio 1.4 (1.0-2.8); Alkaline Phosphatase 80 U/L (38-126); Aspartate Aminotransferase 37 IU/L (17-59); BUN Creatinine Ratio 13.4 (6-22); Bilirubin Total 0.8 mg/dL (0.2-1.3); Blood Urea Nitrogen 18 mg/dL (9-20); Calcium 11.3 mg/dL (8.4-10.2); Carbon Dioxide 28 mmol/L (22-32); Chloride 108 mmol/L (98-107); Estimated Glomerular Filt Rate 51.4 mL/min (>60); Glucose 115 mg/dL (80-110); HEMOLYSIS 19 (0-50); Potassium 4.3 mmol/L (3.4-5.1); Sodium 140 mmol/L (137-145); Total Protein 7.3 g/dL (6.3-8.2)
[2020-06-26 20:43] LABS: INR 1.1 (0.9-1.3); Prothrombin Time 12.5 SECONDS (10.1-12.7)
== END ==
PROVIDERS: PCP Internal Medicine; Referring Provider Physician Assistant; Visit Provider Physician Assistant
DX: R04.2 Hemoptysis (principal)
CPT/HCPCS: 71046; 80053; 85025; 85610

== ENCOUNTER → 2020-11-24 19:50 | Outpatient (ROUT) | payer MEDICARE, SELFPAY ==
[2020-11-24 20:05] LABS: Add Manual Diff / Slide Review NO; Basophils Absolute Auto 100 /uL (0-100); Eosinophils Absolute Auto 200 /uL (0-450); Eosinophils Percent Auto 2.9 % (2-4); Hematocrit 44.1 % (41-53); Hemoglobin 14.2 g/dL (13.5-17.5); Lymphocytes Absolute Auto 1600 /uL (1100-4500); Lymphocytes Percent Auto 24.5 % (25-40); Mean Corpuscular HGB Conc 32.1 % (30-36); Mean Corpuscular Hemoglobin 29.7 PG (26-34); Mean Corpuscular Volume 92.6 fL (80-100); Monocytes Absolute Auto 500 /uL (0-900); Neutrophils Absolute Auto 4200 /uL (1500-7000); Neutrophils Percent Auto 63.6 % (50-75); Platelet Count 210 X10^3/uL (150-400); Red Blood Cell Count 4.76 X10^6/uL (4.5-5.9); White Blood Cell Count 6.6 X10^3/uL (4.5-11.0)
[2020-11-24 20:10] LABS: Alanine Aminotransferase 30 IU/L (<50); Albumin 4.2 g/dL (3.5-5.0); Albumin Globulin Ratio 1.4 (1.0-2.8); Alkaline Phosphatase 68 U/L (38-126); Aspartate Aminotransferase 34 IU/L (17-59); BUN Creatinine Ratio 12.9 (6-22); Bilirubin Total 0.6 mg/dL (0.2-1.3); Blood Urea Nitrogen 16 mg/dL (9-20); Calcium 10.9 mg/dL (8.4-10.2); Carbon Dioxide 29 mmol/L (22-32); Chloride 107 mmol/L (98-107); Cholesterol 151 mg/dL (140-199); Estimated Glomerular Filt Rate 56.1 mL/min (>60); Globulin 2.9 g/dL (1.7-4.1); Glucose 127 mg/dL (80-110); HDL Cholesterol 43 mg/dL (40-60); HEMOLYSIS < 15 (0-50); LDL Cholesterol Calculated 83 mg/dL (<100); Potassium 5.1 mmol/L (3.4-5.1); Sodium 141 mmol/L (137-145); Total Protein 7.1 g/dL (6.3-8.2); Triglycerides 126 mg/dL (35-150)
== END ==
PROVIDERS: PCP Internal Medicine; Visit Provider Internal Medicine
DX: R10.9 Unspecified abdominal pain (principal); E78.2 Mixed hyperlipidemia
CPT/HCPCS: 80053; 80061; 85025

== ENCOUNTER 2021-02-07 19:31 | Emergency (ER) | payer MEDICARE, OTHER, SELFPAY ==
[2021-02-07 19:43] VITALS: BP 165/74; PULSE 63; RESP 18; TEMP 36.4; O2SAT 96; BMI 32.5
--- NOTE | 2021-02-07 21:39 | PC.NURSE ---
patient was watching a game on TV today and the ref made a bad call. He was getting upset and yelling at the TV when around the same time his nose started to bleed profusely. He came to the ED because he couldn't think of a reason that his nose would bleed. he does have a history of HTN and itaking medication for it. Today his blood pressure is 158/87
--- NOTE | 2021-02-07 21:43 | ED.EPISTAXIS ---
HPI - Epistaxis General Chief complaint: Nasal Problem Stated complaint: Nose bleed Time Seen by Provider: 02/07/21 21:43 History of Present Illness HPI Narrative: 80-year-old gentleman with a history of hypertension hyperlipidemia no anticoagulants was watching a basketball game this evening got fairly agitated over a bad call in noticed that his nose was spontaneously bleeding. It continued to bleed for greater than 15 minute so came to the emergency room for further evaluation. With pressure the bleeding has stopped completely. He reports no recent nasal injury, seasonal allergies, upper respiratory infection and denies any actual picking to cause the acute bleeding. Related Data Home Medications Medication Instructions Recorded Confirmed aspirin 81 mg PO QPM #0 03/08/12 01/24/20 Centrum Silver Men 1 tab PO DAILY 12/20/18 01/24/20 allopurinol 300 mg PO QPM 12/20/18 01/24/20 amlodipine 10 mg PO DAILY 12/20/18 01/24/20 atorvastatin 20 mg PO DAILY 12/20/18 01/24/20 cholecalciferol (vitamin D3) 4,000 unit PO DAILY 12/20/18 01/24/20 [Vitamin D3] metformin 1,000 mg PO BID 12/20/18 01/24/20 glimepiride 0.5 mg PO DAILY 05/23/19 01/24/20 donepezil 5 mg PO DAILY 01/24/20 01/24/20 mupirocin 1 applic TOPICAL DIRECTED 01/24/20 01/24/20 Previous Rx's Medication Instructions Recorded naproxen [Naprosyn] 500 mg PO BID PRN #20 tab 01/24/20 pantoprazole [Protonix] 40 mg PO DAILY #10 tab 01/24/20 Allergies Allergy/AdvReac Type Severity Reaction Status Date / Time No Known Drug Allergies Allergy Verified 01/24/20 14:46 Review of Systems Review of Systems Narrative: No fevers, chest pain, dyspnea, wheezing or cough. No abdominal pain or orthopnea. Nor orthostatic hypotension and no other active sites of bleeding Patient History Medical History Diabetes Dyslipidemia Gout Hypertension Social History marital status: household members: spouse, family and children Smoking Status: Never smoker alcohol intake: former substance use type: does not use Smoking Status: Never smoker alcohol intake frequency: 0-2 drinks per day Substance Use Type: does not use Exam Narrative Exam Narrative: General: Alert appropriate in no acute distress HEENT: Small amount of blood at the nares on the left side. No obvious bleeding or point bleeding source either side of the septum or further into than nose. Respiratory: Able to speak in full sentences, no obvious respiratory distress Skin: No obvious rashes, warm and dry Neurologic: Grossly intact no obvious asymmetries or abnormalities Psych, appropriate insight and affect, cooperative Initial Vital Signs Initial Vital Signs: Vital Signs Temperature 97.6 F 02/07/21 19:43 Pulse Rate 63 02/07/21 19:43 Respiratory Rate 18 02/07/21 19:43 Blood Pressure 165/74 H 02/07/21 19:43 Pulse Oximetry 96 02/07/21 19:43 Course Vital Signs Vital signs: Vital Signs - 8 hr 02/07/21 19:43 Temperature 97.6 F Pulse Rate 63 Respiratory Rate 18 Blood Pressure 165/74 H Pulse Oximetry 96 MDM - Epistaxis MDM Narrative Medical decision making narrative: 80-year-old gentleman with a history of hypertension and spontaneous epistaxis that has now resolved. I am not seeing any area that might benefit from cauterization. Blood pressure is adequately controlled. We did discuss the importance of not actually picking and using nasal saline as well as antibiotic ointment to help keep the nasal mucosa moist to avoid any superficial rupture of blood vessels. He is safe for home discharge Discharge Plan Departure Patient Disposition: Home Clinical Impression: Epistaxis Instructions: DI for Nosebleed Activity Restrictions/Additional Instructions: Thank you for coming in today I am glad that your nose bleed stopped all by itself. I would recommend that you use some nasal saline daily to keep the inside of your nose moist. Also using something like antibiotic ointment or Vaseline to coat the inside of your nose can help keep moist as well. You definitely need to continue all of your blood pressure medications. You also need to check your blood pressure every day and write the numbers down so that your doctor knows if this new addition of lisinopril is working for you. If you have worsening problems, please feel free to return to the emergency department Prescriptions: No Action aspirin 81 MG tablet,delayed release (DR/EC) 81 mg PO QPM Qty: 0 RF: 0 metformin 500 mg tablet 1,000 mg PO BID RF: 0 atorvastatin 20 mg tablet 20 mg PO DAILY RF: 0 amlodipine 10 mg tablet 10 mg PO DAILY RF: 0 allopurinol 300 mg tablet 300 mg PO QPM RF: 0 cholecalciferol (vitamin D3) [Vitamin D3] 2,000 unit Capsule 4,000 unit PO DAILY RF: 0 Centrum Silver Men 300-600-300 mcg Tablet 1 tab PO DAILY RF: 0 donepezil 5 mg tablet 5 mg PO DAILY RF: 0 mupirocin 2 % ointment 1 applic TOPICAL DIRECTED RF: 0 pantoprazole [Protonix] 40 mg tablet,delayed release (DR/EC) 40 mg PO DAILY Qty: 10 RF: 0 naproxen [Naprosyn] 500 mg tablet 500 mg PO BID PRN (Reason: pain) Qty: 20 RF: 0 glimepiride 1 mg tablet 0.5 mg PO DAILY RF: 0 Referrals: Chemo Garvin MD [Primary Care Provider] -
[2021-02-07 22:00] VITALS: BP 158/88; PULSE 84; RESP 16; O2SAT 97
== END 2021-02-07 22:00 | disposition home or self-care (01) ==
PROVIDERS: Emergency Provider Emergency Medicine; PCP Internal Medicine
DX: R04.0 Epistaxis (principal)
CPT/HCPCS: 99281

== ENCOUNTER → 2021-02-25 19:06 | Outpatient (ROUT) | payer MEDICARE, SELFPAY ==
[2021-02-25 19:30] LABS: Add Manual Diff / Slide Review NO; Basophils Absolute Auto 100 /uL (0-100); Basophils Percent Auto 1.1 % (0-2); Eosinophils Absolute Auto 200 /uL (0-450); Eosinophils Percent Auto 2.5 % (2-4); Hematocrit 40.7 % (41-53); Hemoglobin 13.6 g/dL (13.5-17.5); Lymphocytes Absolute Auto 2300 /uL (1100-4500); Mean Corpuscular HGB Conc 33.5 % (30-36); Mean Corpuscular Hemoglobin 30.7 PG (26-34); Mean Corpuscular Volume 91.5 fL (80-100); Monocytes Absolute Auto 500 /uL (0-900); Monocytes Percent Auto 6.3 % (3-14); Neutrophils Absolute Auto 4700 /uL (1500-7000); Neutrophils Percent Auto 60.1 % (50-75); Platelet Count 240 X10^3/uL (150-400); Red Blood Cell Count 4.44 X10^6/uL (4.5-5.9); Red Cell Distribution Width 13.1 % (11.6-14.8); White Blood Cell Count 7.8 X10^3/uL (4.5-11.0)
[2021-02-25 19:39] LABS: Alanine Aminotransferase 23 IU/L (<50); Albumin 4.1 g/dL (3.5-5.0); Albumin Globulin Ratio 1.4 (1.0-2.8); Alkaline Phosphatase 75 U/L (38-126); Aspartate Aminotransferase 30 IU/L (17-59); BUN Creatinine Ratio 12.9 (6-22); Bilirubin Total 0.4 mg/dL (0.2-1.3); Blood Urea Nitrogen 17 mg/dL (9-20); Calcium 10.9 mg/dL (8.4-10.2); Carbon Dioxide 26 mmol/L (22-32); Chloride 108 mmol/L (98-107); Estimated Glomerular Filt Rate 52.2 mL/min (>60); Glucose 97 mg/dL (80-110); HEMOLYSIS < 15 (0-50); Potassium 4.4 mmol/L (3.4-5.1); Sodium 141 mmol/L (137-145); Total Protein 7.1 g/dL (6.3-8.2)
[2021-02-27 09:11] LABS: Parathyroid Hormone Int 60 pg/mL (15-65)
== END ==
PROVIDERS: PCP Internal Medicine; Visit Provider Internal Medicine
DX: E83.52 Hypercalcemia (principal); E08.8 Diabetes mellitus due to underlying condition with unspecified complications
CPT/HCPCS: 80053; 83970; 85025

== ENCOUNTER → 2021-08-27 11:59 | Outpatient (CLI) | payer MEDICARE, SELFPAY ==
[2021-08-27 12:13] LABS: Add Manual Diff / Slide Review NO; Basophils Absolute Auto 100 /uL (0-100); Eosinophils Absolute Auto 100 /uL (0-450); Eosinophils Percent Auto 1.8 % (2-4); Hematocrit 42.8 % (41-53); Hemoglobin 14.1 g/dL (13.5-17.5); Lymphocytes Absolute Auto 1800 /uL (1100-4500); Lymphocytes Percent Auto 24.4 % (25-40); Mean Corpuscular HGB Conc 32.8 % (30-36); Mean Corpuscular Hemoglobin 30.1 PG (26-34); Mean Corpuscular Volume 91.6 fL (80-100); Monocytes Absolute Auto 500 /uL (0-900); Monocytes Percent Auto 7.3 % (3-14); Neutrophils Absolute Auto 4800 /uL (1500-7000); Neutrophils Percent Auto 65.5 % (50-75); Platelet Count 193 X10^3/uL (150-400); Red Blood Cell Count 4.68 X10^6/uL (4.5-5.9); Red Cell Distribution Width 13.3 % (11.6-14.8); White Blood Cell Count 7.3 X10^3/uL (4.5-11.0)
[2021-08-27 12:40] LABS: Lipase 121 U/L (23-300)
[2021-08-27 13:27] LABS: Alanine Aminotransferase 24 IU/L (<50); Albumin 4.5 g/dL (3.5-5.0); Albumin Globulin Ratio 1.6 (1.0-2.8); Alkaline Phosphatase 63 U/L (38-126); Aspartate Aminotransferase 35 IU/L (17-59); BUN Creatinine Ratio 12.5 (6-22); Bilirubin Total 0.8 mg/dL (0.2-1.3); Blood Urea Nitrogen 17 mg/dL (9-20); Carbon Dioxide 28 mmol/L (22-32); Chloride 105 mmol/L (98-107); Estimated Glomerular Filt Rate 50.4 mL/min (>60); Globulin 2.9 g/dL (1.7-4.1); Glucose 146 mg/dL (80-110); HEMOLYSIS < 15 (0-50); Potassium 4.4 mmol/L (3.4-5.1); Sodium 141 mmol/L (137-145); Total Protein 7.4 g/dL (6.3-8.2)
== END ==
PROVIDERS: PCP Internal Medicine; Referring Provider Nurse Practitioner; Visit Provider Nurse Practitioner
DX: R10.9 Unspecified abdominal pain (principal)
CPT/HCPCS: 36415; 80053; 83690; 85025